=== PATIENT | male | born 1970 | race Hispanic/Latino ===

== ENCOUNTER 2018-08-03 21:19 | Emergency (ER) | payer MEDICAID, OTHER ==
[2018-08-03 21:19] VITALS: BMI 40.7
[2018-08-03 21:41] VITALS: TEMP 98.6
[2018-08-03] MEDS ORDERED: Tmp-Smz 800 mg-160 mg DS Tab PO STA (23:53)
--- NOTE | 2018-08-04 00:07 | ED PDOC ---
Arrival/HPI - General Chief Complaint: Finger,Hand,&Wrist Time Seen by Provider: 08/03/18 21:34 Historian: Patient - History of Present Illness Narrative History of Present Illness (Text): 48-year-old male presents today with concerns for possible foreign body in the right fifth finger. Patient states yesterday he was moving stuff in the garage and got stuck with a piece of [place]. Patient states he used a blade and made a small cut in the volar aspect of the finger and was able to lift up the thick approximately the size of a toothpick piece of wood and pull it out of his finger. Patient states he is not sure if there is any foreign body left in the finger but he is now having pain and swelling with redness only to the volar aspect of the finger and the proximal phalanx. Patient denies decreased range of motion of the finger but states he feels as if it is very swollen at the base. No medications have been taken for pain at home. Patient states his tetanus shot is up-to-date. Time/Duration: Other (Yesterday) Past Medical History - Provider Review Nursing Documentation Reviewed: Yes - Travel History Have you recently traveled outside [place] w/in the past 3 mons?: No - Tetanus Immunization Tetanus Immunization: Up to Date - Cardiac Hx Cardiac Disorders: Yes Hx Hypertension: Yes - Pulmonary Hx Respiratory Disorders: No - Neurological Hx Neurological Disorder: No - HEENT Hx HEENT Disorder: No - Renal Hx Renal Disorder: No - Endocrine/Metabolic Hx Endocrine Disorders: Yes Hx Diabetes Mellitus Type 2: Yes - Hematological/Oncological Hx Blood Disorders: No - Integumentary Hx Dermatological Disorder: No - Musculoskeletal/Rheumatological Hx Musculoskeletal Disorders: No Hx Falls: No - Gastrointestinal Hx Gastrointestinal Disorders: No - Genitourinary/Gynecological Hx Genitourinary Disorders: No - Psychiatric Hx Psychophysiologic Disorder: No Hx Substance Use: No - Surgical History Other/Comment: CSF leak operation. Family/Social History - Physician Review Nursing Documentation Reviewed: Yes Family/Social History: Unknown Family HX Smoking Status: Never Smoked Hx Alcohol Use: No Hx Substance Use: No Allergies/Home Meds Allergies/Adverse Reactions: Allergies No Known Allergies Allergy (Verified 08/03/18 21:36) Review of Systems - Review of Systems Constitutional: absent: Fatigue, Fevers Respiratory: absent: SOB, Cough Cardiovascular: absent: Chest Pain, Palpitations Gastrointestinal: absent: Abdominal Pain, Nausea Musculoskeletal: Arthralgias Skin: Cellulitis Neurological: absent: Headache Physical Exam Vital Signs Reviewed: Yes Vital Signs Temp Pulse Resp BP Pulse Ox 08/03/18 21:37 98.6 F 75 18 154/93 H 96 Temperature: Afebrile Blood Pressure: Hypertensive Pulse: Regular Respiratory Rate: Normal Appearance: Positive for: Well-Appearing, Non-Toxic, Comfortable Pain Distress: None Mental Status: Positive for: Alert and Oriented X 3 - Systems Exam Head: Present: Atraumatic Mouth: Present: Moist Mucous Membranes Respiratory/Chest: Present: Clear to Auscultation Cardiovascular: Present: Regular Rate and Rhythm Upper Extremity: Present: Normal ROM, NORMAL PULSES, Tenderness (right 5th finger; there is erythema and minimal swelling noted over the volar aspect of the finger at the proximal phalanx. full rom of finger including full extension and full flexion. there is a 3mm superfical abrasion with small puncture in the center noted along the volar aspect at the proximal phalanx. sensation and distal pulses intact. no streaking erythema), Swelling, Erythema, Neurovascularly Intact, Capillary Refill < 2s. No: Deformity Neurological: Present: GCS=15, Speech Normal Skin: Present: Warm, Dry, Normal Color Psychiatric: Present: Alert, Oriented x 3 Medical Decision Making ED Course and Treatment: 08/04/18 00:07 Patient is nontoxic well-appearing no distress with stable vital signs Patient with possible foreign body in the right fifth finger along the volar aspect since yesterday. Tetanus is up-to-date. Patient states last tetanus shot was in 2014. X-rays of the right fifth finger show no fracture or foreign body wound clean and irrigated; no visualized or palpable foreign body noted. full ROM of finger. no streaking erythema. bacitracin and dressing applied Keflex and Bactrim given p.o. I discussed the results in depth with the patient stressed the importance of follow-up with primary care physician and hand specialist within the next 2 days. I advised the patient of possibility of retained foreign body in the finger and need for immediate follow-up. I have discussed signs and symptoms of worsening infection and need for immediate return if the symptoms develop. I advised return in 2 days for wound check. Patient verbalizes understanding of discharge instructions and need for immediate followup. All aspects of this case were discussed the attending of record. Impression: Cellulitis finger, foreign body finger Motrin one tablet every 6 hours as needed for pain keflex; 1 capsule 4 times daily x 7 days. Bactrim DS: One tablet twice daily x7 days keep wound clean and dry; apply bacitracin twice daily. Return in 2 days for wound check Follow up with the hand specialist within the next 2 days follow up with the primary care physician within the next 2 days. Return immediately if symptoms worsen persist or if new symptoms develop: High fevers, increasing pain, increasing redness, swelling or if any other concerning symptoms develop. - RAD Interpretation Radiology Orders: 08/03/18 22:50 HAND RIGHT 5TH DIGIT (FINGER) [RAD] Stat - Medication Orders Current Medication Orders: Discontinued Medications Cephalexin Monohydrate (Keflex) 500 mg PO STAT STA; Protocol Stop: 08/03/18 22:52 Last Admin: 08/03/18 22:56 Dose: 500 mg Trimethoprim/Sulfamethoxazole (Bactrim Ds Tab) 1 tab PO STAT STA; Protocol Stop: 08/03/18 23:54 Disposition/Present on Arrival - Present on Arrival Any Indicators Present on Arrival: No History of DVT/PE: No History of Uncontrolled Diabetes: No Urinary Catheter: No History of Decub. Ulcer: No History Surgical Site Infection Following: None - Disposition Have Diagnosis and Disposition been Completed?: Yes Diagnosis: Cellulitis, finger, Foreign body finger Disposition: HOME/ ROUTINE Disposition Time: 00:04 Patient Plan: Discharge Condition: GOOD Discharge Instructions (ExitCare): Cellulitis (ED) Additional Instructions: Motrin one tablet every 6 hours as needed for pain keflex; 1 capsule 4 times daily x 7 days. Bactrim DS: One tablet twice daily x7 days] keep wound clean and dry; apply bacitracin twice daily. Return in 2 days for wound check Follow up with the hand specialist within the next 2 days follow up with the primary care physician within the next 2 days. Return immediately if symptoms worsen persist or if new symptoms develop: High fevers, increasing pain, increasing redness, swelling or if any other concerning symptoms develop. Prescriptions: Bacitracin OINT 1 applic TP BID #1 tube Cephalexin [Keflex] 500 mg PO QID #28 capsule Ibuprofen [Motrin] 600 mg PO Q6H PRN #20 tab PRN Reason: pain/fever reduction Sulfamethoxazole/Trimethoprim [Bactrim DS 800 mg-160 mg] 1 tab PO BID #14 tab Referrals: Jo Ann Younger MD [Primary Care Provider] - Follow up with primary Jeff Pacheco MD [Staff Provider] - Follow up with primary [facility] [Outside] - Follow up with primary Forms: [employer] (J[place]ican)
[2018-08-04 00:28] VITALS: BP 127/80; PULSE 70; RESP 17; O2SAT 100
--- NOTE | 2018-08-04 10:24 | RAD ---
Date of service: 08/03/2018 PROCEDURE: Right small finger radiographs. HISTORY: wooden splinter in volar proximal finger yesterday COMPARISON: None. TECHNIQUE: AP radiograph of the right hand, as well as spot oblique and lateral images of small finger were obtained. FINDINGS: RIGHT SMALL FINGER: Normal right small finger, without acute fracture or focal lesion. Remainder of the right hand (as seen on the AP view) grossly unremarkable. JOINTS: Normal. SOFT TISSUES: Normal. There is no radiopaque foreign body. OTHER FINDINGS: None. IMPRESSION: No acute displaced fracture or dislocation. No radiopaque foreign body.
== END 2018-08-04 00:10 | disposition home or self-care (01) ==
LOC: ED 21:19
DX: L03.011 Cellulitis of right finger (principal); S60.456A Superficial foreign body of right little finger, initial encounter; W45.8XXA Other foreign body or object entering through skin, initial encounter; E11.9 Type 2 diabetes mellitus without complications; I10 Essential (primary) hypertension